=== PATIENT | female | born 1980 | race African-American/Black ===

== ENCOUNTER 2017-02-18 09:10 | Observation (INO) | payer MEDICAID ==
[2017-02-18 12:38] LABS: Urine Bilirubin Negative (Negative); Urine Color Yellow (Yellow); Urine Glucose Normal (Normal); Urine Mucus FEW (None Seen); Urine Nitrite Negative (Negative); Urine RBC <1 /hpf (0 - 4); Urine Squamous Epithelial Cell FEW /hpf (<5); Urine Urobilinogen Normal (Negative)
[2017-02-18 12:41] LABS: Urine Blood 2+ /uL (Negative); Urine Ketone 1+ (Negative)
[2017-02-18 12:48] LABS: INR 0.94 (0.9-1.15); Partial Thromboplastin Time 30.4 sec (22.64-33.71); Prothrombin Time 10.2 sec (9.37-12.3)
[2017-02-18 13:12] LABS: Basophils # (auto) 0 uL; Basophils % (auto) 0.3 % (0.0-2.0); Eosinophils # (auto) 0.1 uL; Eosinophils % (auto) 0.8 % (0.0-7.0); Hematocrit 30.7 % (36.0-46.0); Hemoglobin 10.4 g/dL (12.2-16.2); Lymphocytes # (auto) 1.1 uL; Lymphocytes % (auto) 16.5 % (10.0-50.0); Mean Corpuscular Hgb Conc. 33.8 g/dL (32.0-36.0); Mean Corpuscular Volume 88.8 fL (80.0-100.0); Mean Platelet Volume 11.4 fL (7.4-10.4); Monocytes # (auto) 0.8 uL; Neutrophils # (auto) 4.7 uL; Neutrophils % (auto) 70.4 % (37.0-80.0); Platelet Count (auto) 182 10^3/uL (140-450); SUSPECT VIEW TRANSMISSION; White Blood Cell 6.7 10^3/uL (4.4-10.8)
[2017-02-18 13:29] LABS: Albumin 2.4 g/dL (3.4-5.0); BUN/Creatinine Ratio 14.9; Bilirubin, Total 0.4 mg/dL (0.2-1.0); Calcium 7.9 mg/dL (8.5-10.1); Potassium 3.9 mmol/L (3.5-5.1); Total Protein 6.8 g/dL (6.4-8.2)
== END 2017-02-18 13:00 | disposition home or self-care (01) | DRG 566 ==
LOC: LDRP 09:10
PROVIDERS: ADMIT Obstetrics & Gynecology; ATTEND Obstetrics & Gynecology
DX: O46.93 Antepartum hemorrhage, unspecified, third trimester (principal); O26.893 Other specified pregnancy related conditions, third trimester; O62.9 Abnormality of forces of labor, unspecified; R10.9 Unspecified abdominal pain; O09.893 Supervision of other high risk pregnancies, third trimester; Z3A.31 31 weeks gestation of pregnancy
CPT/HCPCS: 36415; 59025; 76805; 80053; 80307; 81001; 81002; 85025; 85610; 85730; 86592; 86706; 86762; 86850; 86900; 86901; G0378

== ENCOUNTER 2017-05-12 02:36 | Emergency (ER) | payer MEDICAID ==
[~2017-05-12] VITALS: Ht 149.9 cm; Wt 47.6 kg
[2017-05-12 03:09] LABS: Urine Bilirubin Negative (Negative); Urine Blood TRACE /uL (Negative); Urine Color Yellow (Yellow); Urine Glucose Normal (Normal); Urine Ketone Negative (Negative); Urine Mucus FEW (None Seen); Urine Nitrite Negative (Negative); Urine RBC 2 /hpf (0 - 4); Urine Squamous Epithelial Cell FEW /hpf (<5); Urine Urobilinogen Normal (Negative); Urine pH 5.5 (5.0-8.0)
[2017-05-12 03:24] LABS: Basophils # (auto) 0 uL; CONDITION Y; Eosinophils # (auto) 0.3 uL; Eosinophils % (auto) 6.5 % (0.0-7.0); Hematocrit 28.7 % (36.0-46.0); Hemoglobin 9.4 g/dL (12.2-16.2); Lymphocytes # (auto) 1.8 uL; Lymphocytes % (auto) 39.4 % (10.0-50.0); Mean Corpuscular Hemoglobin 28.4 pg (28.0-32.0); Mean Corpuscular Hgb Conc. 32.7 g/dL (32.0-36.0); Mean Corpuscular Volume 86.8 fL (80.0-100.0); Mean Platelet Volume 9.1 fL (7.4-10.4); Monocytes # (auto) 0.5 uL; Neutrophils % (auto) 43.1 % (37.0-80.0); Platelet Count (auto) 386 10^3/uL (140-450); Red Cell Distribution Width 15.3 % (11.6-16.0); White Blood Cell 4.6 10^3/uL (4.4-10.8)
[2017-05-12 03:42] LABS: Albumin 3.3 g/dL (3.4-5.0); Calcium 8.4 mg/dL (8.5-10.1); Potassium 3.5 mmol/L (3.5-5.1)
[2017-05-12 03:45] LABS: Bilirubin, Total 0.8 mg/dL (0.2-1.0); Total Protein 7.6 g/dL (6.4-8.2)
[2017-05-12] MEDS ORDERED: SODIUM CHLORIDE 0.9% 1,000 ML IV ONE (03:45)
[2017-05-12] MEDS ORDERED: cefTRIAXone 1GM/50ML D5W 50 ML IV ONE (03:45)
[2017-05-12] MEDS ORDERED: BACITRACIN-POLYMYXIN B TOPICAL OINT UD TOP ONE (04:13)
[2017-05-12] MEDS ORDERED: NEOMYCIN-BACITRACIN-POLYM 15GM TOP OINT TOP ONE (04:14)
[2017-05-12] MEDS ORDERED: KETOROLAC TROMETH 30 MG/ML 1ML VIAL IV ONE (04:45)
[2017-05-12 05:00] VITALS: BP 108/59
== END 2017-05-12 05:58 | disposition home or self-care (01) ==
LOC: ER 02:36
DX: O90.89 Other complications of the puerperium, not elsewhere classified (principal); T81.4XXA Infection following a procedure, initial encounter; N39.0 Urinary tract infection, site not specified; D64.9 Anemia, unspecified; L03.311 Cellulitis of abdominal wall
CPT/HCPCS: 36415; 80053; 81001; 85025; 96365; 96375; 99284; J0696; J1885; J7030

== ENCOUNTER 2017-12-18 08:12 | Emergency (ER) | payer MEDICAID ==
[~2017-12-18] VITALS: Ht 149.9 cm; Wt 46.7 kg
[2017-12-18 08:17] VITALS: BP 112/72
== END 2017-12-18 09:54 | disposition home or self-care (01) ==
LOC: ER 08:12
DX: N76.0 Acute vaginitis (principal)
CPT/HCPCS: 81002